=== PATIENT | male | born 1965 | race Caucasian/White ===

== ENCOUNTER 2020-07-22 08:46 | Outpatient (REF) | payer MEDICAID, SELFPAY ==
[2020-07-22 16:13] LABS: ALT 46 U/L (16-63); AST 15 U/L (15-37); Albumin 4.1 g/dL (3.4-5.0); Alkaline Phosphatase 59 U/L (46-116); BUN 23 mg/dL (7-18); Bilirubin, Total 0.4 mg/dL (0.2-1.0); CREATININE 1.1 mg/dL (0.70-1.30); Calculated LDL 78 mg/dL (<100); Chloride 105 mmol/L (98-107); Cholesterol 142 mg/dL (<200); Glucose 103 mg/dL (74-106); HDL Cholesterol 56 mg/dL (40-60); Potassium 4.6 mmol/L (3.5-5.1); Sodium 142 mmol/L (136-145); Total Protein 6.9 g/dL (6.4-8.2); Triglyceride 43 mg/dL (<150)
== END 2020-07-22 08:47 | disposition home or self-care (01) ==
LOC: NCHCN 08:46
PROVIDERS: PCP Physician Assistant; Visit Provider Physician Assistant
DX: R03.0 Elevated blood-pressure reading, without diagnosis of hypertension (principal); F41.8 Other specified anxiety disorders; Z13.220 Encounter for screening for lipoid disorders
CPT/HCPCS: 80053; 80061

== ENCOUNTER 2021-04-28 11:26 | Outpatient (REF) | payer MEDICAID, SELFPAY ==
[2021-04-28 19:30] LABS: Abs Immature Grans 0.03 10^3/uL (0.0-0.06); Absolute Basophil Count 0.03 10^3/uL (0.0-0.2); Absolute Eosinophil Count 0.08 10^3/uL (0.0-0.7); Absolute Lymphocyte Count 1.78 10^3/uL (1.2-3.4); Absolute Monocyte Count 0.63 10^3/uL (0.1-0.8); Absolute Neutrophil Count 4.76 10^3/uL (1.2-6.7); Basophils % 0.4; Eosinophils % 1.1; HCT 41.1 % (40.0-50.0); HGB 12.8 g/dL (13.5-17.5); Immature Grans % 0.4; Lymphocytes % 24.4; MCH 27.1 pg (27.0-33.0); MCHC 31.1 % (32.0-36.0); MCV 87.1 fL (80-95); MPV 11.1 fL (8.0-11.0); Monocytes % 8.6; Neutrophils % 65.1; Nucleated RBC 0 %; Platelet Count 337 10^3/uL (130-400); RBC 4.72 10^6/uL (4.36-5.78); RDW 12.4 % (11.8-14.1); RDW-SD 39.7 fL; WBC 7.31 10^3/uL (4.4-10.8)
[2021-04-28 20:47] LABS: ALT 38 U/L (16-63); AST 20 U/L (15-37); Albumin 4.1 g/dL (3.4-5.0); Alkaline Phosphatase 66 U/L (46-116); BUN 30 mg/dL (7-18); Bilirubin, Total 0.3 mg/dL (0.2-1.0); Calcium 9.2 mg/dL (8.5-10.1); Chloride 100 mmol/L (98-107); Glucose 104 mg/dL (74-106); Potassium 4.2 mmol/L (3.5-5.1); Sodium 131 mmol/L (136-145); TSH (W/Ref FT4) 1.54 uIU/mL (0.36-3.74); Total Protein 7.1 g/dL (6.4-8.2)
== END 2021-04-28 11:27 | disposition home or self-care (01) ==
LOC: NCHCN 11:26
PROVIDERS: PCP Physician Assistant; Visit Provider Physician Assistant
DX: I10 Essential (primary) hypertension (principal); R53.83 Other fatigue; R06.02 Shortness of breath; F41.8 Other specified anxiety disorders
CPT/HCPCS: 80053; 84443; 85025

== ENCOUNTER → 2021-10-13 01:40 | Outpatient (CLI) | payer MEDICAID, SELFPAY ==
--- NOTE | 2021-10-13 | DI.US_ITS ---
Exam(s) US ABDOMEN EXAM: US ABDOMEN CLINICAL HISTORY: HX OF ALCOHOLISM, F10.21 TECHNIQUE: Ultrasound abdomen performed using standard protocol. COMPARISON: No exams were available for comparison FINDINGS: ABDOMINAL AORTA AND IVC: Visualized portions normal caliber. PANCREAS: Normal where visualized. LIVER: There is diffuse increased echogenicity of the liver consistent with fatty infiltration. The liver measures 18.3 cm long. Hepatopedal flow in the Portal Vein. GALLBLADDER:Cholelithiasis is present. There is an MLO bile stone seen in the neck of the gallbladde r. No evidence of wall thickening. No pericholecystic fluid identified. BILIARY SYSTEM: Common bile duct measures < 7 mm. No intrahepatic biliary ductal dilation. LOPEZ'S SIGN: Negative. KIDNEYS: Kidneys are symmetric in size. No evidence of renal calculi. No evidence of hydronephrosis. No renal mass or cyst identified. SPLEEN: Not enlarged. There is a calcified granuloma present. ASCITES: None seen. IMPRESSION: 1. 2.4 cm immobile al gallstone in the neck of the gallbladder. No gallbladder wall thickening, rakesh cholecystic fluid, gallbladder wall thickening. There is a negative sonographic Lopez sign. No iliana iary ductal dilatation is present. 2. Mild hepatomegaly and hepatic steatosis. DATA REPOSITORY:
--- NOTE | 2021-10-13 09:15 | DI.NM_ITS ---
APPROVED REPORT Exam: Pharmacologic Patient Location: Out-Patient Room/Bed: Stress Nurse: Sivan Chery RN Ordering Provider:WESLEY JIMENEZ, Contact Number: [phone] BMI: 29.15 Baseline Rhythm: Sinus Bradycardia Indications: Failed stress echocardiogram at [facility]. Medical History Medical History: Hx of alcoholism. Chest pain. Fatigue. Cardiac Medications: Metoprolol. Allergies: Amoxicillin. PCN. Naproxen. Sildenafil Citrate. Bactrim. Prozac. Cardiac Risk Factors: HTN. Smoker quite cigarettes, currently chews tobacoe. HLD. Asthma. Previous Cardiac Procedures: none Pretest Chest Pain Characteristics: Pt reported mild chest pressure pretest, related to anxiety. Exercise History: Indeterminate Physical Disabilities: Knees Lung Sounds: Clear to auscultation. Heart Sounds: Bradycardia Stress Test Details Test: Pharmacologic stress testing performed using 0.4 mg of regadenoson per 5 mL given IV over 10 s econds. Reason for pharmacologic stress test: changed from exercise stress test due to inability to reach t arget heart rate. Nuclear Acquisition: Rest Tc-99m/Stress Tc-99m 1 day Rest Isotope: Tc-99m Sestamibi. Dose: 10.5 Date: 10/13/2021 Injection Time: 0930 Stress Isotope: Tc-99m Sestamibi. Dose: 36.0 Date: 10/13/2021 Injection Time: 1144 HR Resting HR Supine: 57 bpm Max Heart Rate (APMHR): 165.935014 bpm Resting HR Standin bpm Target HR (85% APMHR): 140.240288 bpm Max HR Achieved: 129 bpm % of APMHR: 78.18 Recovery HR: 81 bpm HR response to stress: Normal HR response to stress Comment: Metoprolol held this am. BP Resting BP Supine: 134/80 mmHg Resting BP Standin/78 mmHg Max BP: 182/70 mmHg Recovery BP: 124/68 mmHg BP response to stress: Normal blood pressure response to stress. ECG Resting ECG: Sinus Bradycardia Ectopy: none Stress ECG: Sinus Tachycardia ST Change: No significant ST segment changes noted Arrhythmia: None Recovery ECG: Sinus Rhythm Recovery ST Change: No significant ST segment changes noted Recovery Arrhythmia: None Clinical Reason for Termination: Fatigue Stress Symptoms: Chest pain, General Fatigue Highest Stage Reached: Stage 4: 4.2 mph at 16% grade. Exercise capacity: 13 METs Angina Score: Non-Limiting Santamaria Treadmill Score: 7.7 Rate Pressure Product: [id number] Stress ECG Conclusion 1. Resting electrocardiogram was within normal limits 2. Patient underwent testing using a combination of treadmill exercise and pharmacologic stress with regadenoson 3. He achieved a workload of 13 METS and 78% of predicted heart rate for age 4. The electrocardiographic portion of the test was nondiagnostic due to inadequate heart rate 5. There were no significant dysrhythmias 6. See MPI report Santamaria Treadmill Score is 7.7 which is Low risk. Stress Test Summary STAGE Time (mins) Speed (mph) Grade (%) HR BP SpO2 SYMPTOMS METS Supine 57 134/80 Pt reports mild chest pressure he relates to anxiety. Standing 70 120/78 1 3 1.7 10 105 164/76 4.5 2 6 2.5 12 110 174/68 4/5 out of 10 chest pressure 7 3 9 3.4 14 124 182/70 5 out of 10 chest pain/pressure. 10 1 min post Lexiscan injection 113 158/50 3 out of 10 chest pressure chest pain subsided. 3 min post Lexiscan injection 89 154/72 chest pressure subsided. 6 min post Lexiscan injection 81 124/68 MPI Conclusion Normal myocardial perfusion without evidence of ischemia or prior infarction EF 55%, normal wall motion Radiologist Interpretation Radiologist Interpretation by: Richy Huitron MD Interpretation Date/Time: 10/13/2021 16:25:42
[2021-10-13] MEDS: Regadenoson 0.4 MG/5 ML SYR IVP (11:54)
== END ==
PROVIDERS: PCP Physician Assistant; Visit Provider Physician Assistant
DX: R94.39 Abnormal result of other cardiovascular function study (principal)
CPT/HCPCS: 78452; 76700; 93017; J2785

== ENCOUNTER 2022-06-30 17:11 | Outpatient (REF) | payer MEDICAID, SELFPAY ==
[2022-06-30 19:36] LABS: Abs Immature Grans 0.04 10^3/uL (0.0-0.06); Absolute Basophil Count 0.04 10^3/uL (0.0-0.2); Absolute Eosinophil Count 0.12 10^3/uL (0.0-0.7); Absolute Monocyte Count 0.75 10^3/uL (0.1-0.8); Absolute Neutrophil Count 4.65 10^3/uL (1.2-6.7); Basophils % 0.5; Eosinophils % 1.6; HCT 39.9 % (40.0-50.0); Immature Grans % 0.5; Lymphocytes % 27.3; MCH 27.8 pg (27.0-33.0); MCHC 32.6 % (32.0-36.0); MCV 85 fL (80-95); MPV 11.5 fL (8.0-11.0); Monocytes % 9.7; Neutrophils % 60.4; Platelet Count 295 10^3/uL (130-400); RBC 4.68 10^6/uL (4.36-5.78); RDW 12.4 % (11.8-14.1); RDW-SD 38.6 fL
[2022-06-30 20:02] LABS: ALT 38 U/L (16-63); AST 18 U/L (15-37); Albumin 4.1 g/dL (3.4-5.0); Alkaline Phosphatase 60 U/L (46-116); Anion Gap 6.7 mmol/L (3-11); BUN 25 mg/dL (7-18); Bilirubin, Total 0.4 mg/dL (0.2-1.0); CO2 29.3 mmol/L (21.0-32.0); CREATININE 1.3 mg/dL (0.70-1.30); Chloride 103 mmol/L (98-107); Estimated GFR 64.47 (mL/min/1.73m2); Glucose 138 mg/dL (74-106); Sodium 139 mmol/L (136-145); Total Protein 7.2 g/dL (6.4-8.2)
== END 2022-06-30 17:12 | disposition home or self-care (01) ==
LOC: NCHCN 17:11
PROVIDERS: PCP Physician Assistant; Visit Provider Physician Assistant
DX: I10 Essential (primary) hypertension (principal); K70.0 Alcoholic fatty liver; R73.09 Other abnormal glucose
CPT/HCPCS: 80053; 83036; 85025

== ENCOUNTER 2023-06-28 18:32 | Outpatient (REF) | payer MEDICAID, SELFPAY ==
[2023-06-28 19:16] LABS: ALT 49 U/L (16-63); AST 18 U/L (15-37); Albumin 3.8 g/dL (3.4-5.0); Alkaline Phosphatase 54 U/L (46-116); Anion Gap 8.7 mmol/L (3-11); BUN 25 mg/dL (7-18); Bilirubin, Total 0.6 mg/dL (0.2-1.0); CO2 29.3 mmol/L (21.0-32.0); CREATININE 1.2 mg/dL (0.70-1.30); Calcium 8.7 mg/dL (8.5-10.1); Chloride 102 mmol/L (98-107); Estimated GFR 70.53 (mL/min/1.73m2); Glucose 146 mg/dL (74-106); Potassium 3.2 mmol/L (3.5-5.1); Sodium 140 mmol/L (136-145); Total Protein 6.8 g/dL (6.4-8.2)
== END 2023-06-28 18:33 | disposition home or self-care (01) ==
LOC: NCHCN 18:32
PROVIDERS: PCP Physician Assistant; Visit Provider Physician Assistant
DX: K70.0 Alcoholic fatty liver (principal)
CPT/HCPCS: 80053

== ENCOUNTER 2023-07-13 14:46 | Outpatient (REF) | payer MEDICAID, SELFPAY ==
[2023-07-13 19:26] LABS: Anion Gap 7.8 mmol/L (3-11); BUN 21 mg/dL (7-18); CO2 29.2 mmol/L (21.0-32.0); CREATININE 1.2 mg/dL (0.70-1.30); Calcium 8.8 mg/dL (8.5-10.1); Chloride 104 mmol/L (98-107); Estimated GFR 70.53 (mL/min/1.73m2); Glucose 93 mg/dL (74-106); Potassium 4.3 mmol/L (3.5-5.1); Sodium 141 mmol/L (136-145)
== END 2023-07-13 14:47 | disposition home or self-care (01) ==
LOC: NCHCN 14:46
PROVIDERS: PCP Physician Assistant; Visit Provider Physician Assistant
DX: K70.0 Alcoholic fatty liver (principal)
CPT/HCPCS: 80048

== ENCOUNTER 2024-05-09 13:32 | Outpatient (REF) | payer MEDICAID, SELFPAY ==
[2024-05-09 19:08] LABS: HCT 41.5 % (40.0-50.0); HGB 13.5 g/dL (13.5-17.5); MCH 27.6 pg (27.0-33.0); MCHC 32.5 % (32.0-36.0); MCV 85 fL (80-95); MPV 11.6 fL (8.0-11.0); Platelet Count 258 10^3/uL (130-400); RBC 4.89 10^6/uL (4.36-5.78); RDW 12.4 % (11.8-14.1); RDW-SD 38.3 fL; WBC 9.53 10^3/uL (4.4-10.8)
[2024-05-09 19:39] LABS: ALT 37 U/L (16-63); AST 38 U/L (15-37); Albumin 3.9 g/dL (3.4-5.0); Alkaline Phosphatase 57 U/L (46-116); Anion Gap 4.4 mmol/L (3-11); BUN 22 mg/dL (7-18); Bilirubin, Total 0.72 mg/dL (0.2-1.0); CO2 30.6 mmol/L (21.0-32.0); CREATININE 1.4 mg/dL (0.70-1.30); Chloride 99 mmol/L (98-107); Estimated GFR 58.26 (mL/min/1.73m2); Folate 12.2 ng/mL (8.6-20.0); Glucose 101 mg/dL (74-106); Potassium 4.2 mmol/L (3.5-5.1); Sodium 134 mmol/L (136-145); Total Protein 7.5 g/dL (6.4-8.2); Vitamin B12 505 pg/mL (193-986)
== END 2024-05-09 13:33 | disposition home or self-care (01) ==
LOC: NCHCN 13:32
PROVIDERS: PCP Physician Assistant; Visit Provider Internal Medicine
DX: R42 Dizziness and giddiness (principal)
CPT/HCPCS: 80053; 85027; 82607; 82746

== ENCOUNTER 2024-08-08 20:08 | Outpatient (REF) | payer MEDICAID, SELFPAY ==
[2024-08-08 20:01] LABS: Anion Gap 4.1 mmol/L (3-11); BUN 25 mg/dL (7-18); CO2 30.9 mmol/L (21.0-32.0); CREATININE 1.2 mg/dL (0.70-1.30); Calcium 9.5 mg/dL (8.5-10.1); Chloride 105 mmol/L (98-107); Glucose 114 mg/dL (74-106); Potassium 4.7 mmol/L (3.5-5.1); Sodium 140 mmol/L (136-145)
[2024-08-11 10:30] LABS: HIV-1/2 Ag & Ab Screen Negative (Negative)
== END 2024-08-08 20:09 | disposition home or self-care (01) ==
LOC: NCHCN 20:08
PROVIDERS: PCP Physician Assistant; Visit Provider Physician Assistant
DX: R89.9 Unspecified abnormal finding in specimens from other organs, systems and tissues (principal); Z11.4 Encounter for screening for human immunodeficiency virus [HIV]
CPT/HCPCS: 80048; 87389